=== PATIENT | male | born 1975 | race Two or more races ===

== ENCOUNTER 2022-09-27 13:56 | Emergency (ER) | payer OTHER ==
[~2022-09-27] VITALS: Ht 188 cm; Wt 85.7 kg
== END 2022-09-27 20:18 | disposition home or self-care (01) ==
LOC: ER 13:56
DX: S79.812A Other specified injuries of left hip, initial encounter (principal); Y93.B9 Activity, other involving muscle strengthening exercises; Y92.9 Unspecified place or not applicable; S79.822A Other specified injuries of left thigh, initial encounter; M62.838 Other muscle spasm

== ENCOUNTER 2022-10-04 11:55 | Outpatient (CLI) | payer OTHER | END 2022-10-04 12:06 | disposition home or self-care (01) | LOC: MRI 11:55 | PROVIDERS: ATTEND Physical Medicine & Rehabilitation | DX: M54.59 Other low back pain (principal) | CPT/HCPCS: 72148 ==

== ENCOUNTER 2024-11-06 15:26 | Outpatient (CLI) | payer OTHER | END 2024-11-06 15:27 | disposition home or self-care (01) | LOC: RAD 15:26 | DX: M99.01 Segmental and somatic dysfunction of cervical region (principal); M99.02 Segmental and somatic dysfunction of thoracic region; M99.03 Segmental and somatic dysfunction of lumbar region ==